=== PATIENT | female | born 1960 | race Two or more races ===

== ENCOUNTER → 2021-12-30 | Outpatient (CLI) | payer MEDICAID ==
[2021-12-30 10:16] LABS: Urine WBC None Seen /hpf (0 - 5)
[2021-12-30 12:54] LABS: Urine Bacteria NONE SEEN /hpf (None Seen); Urine Blood Negative /uL (Negative); Urine Specific Gravity 1.016 (1.001-1.035)
== END | disposition home or self-care (01) ==
LOC: LAB 10:12
PROVIDERS: ATTEND Urology
DX: N39.0 Urinary tract infection, site not specified (principal)
CPT/HCPCS: 81001; 87086

== ENCOUNTER 2024-09-02 14:40 | Emergency (ER) | payer MEDICAID ==
[~2024-09-02] VITALS: Ht 167.6 cm; Wt 118.0 kg
[2024-09-02 16:26] VITALS: BP 148/86; PULSE 102; RESP 16; TEMP 98.5; O2SAT 95
--- NOTE | 2024-09-02 16:31 | ED.PDOC ---
Musculoskeletal HPI Comments 64-year-old female presents with a chief complaint of right foot, 2nd toe bruising s/p ingrown toe nail removal x onset Sunday. Patient states that she noticed the bruising on Sunday and is concerned and wanted to be evaluated. Chief Complaint: Lower Extremity Time Seen by MD: 16:17 Reviewed Notes: Nurses Notes, Medications, Allergies Allergies: Coded Allergies: NO KNOWN ALLERGIES (Unverified , 09/02/24) Home Meds Active Scripts Cephalexin Monohydrate (Cephalexin) 500 Mg Tab, 1 TAB PO QID for 7 Days, #28 TAB 0 Refills Prov:VIRGINIA RUSHINGGrisel El NP 09/02/24 Information Source: Patient Mode of Arrival: Ambulatory Location: Right Extremity Location: Toe 2 Timing: Days Prehospital treatment: None Severity: Moderate Able to Move Extremity: Yes Bear Weight: Fully Pain: Moderate Hand Dominance: Right Past Medical History PAST MEDICAL HISTORY: DM Surgical History: Denies all surgeries 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 OPERATOR Hx Family History Family History: Reviewed,noncontributory to illness Social History Smoker: Non-Smoker Alcohol: Denies ETOH Use Drugs: Denies Drug Use Lives In: Home Constitutional: denies: chills, diaphoresis, fatigue, fever, malaise, sweats, weakness, others EENTM: denies: blurred vision, double vision, ear bleeding, ear discharge, ear drainage, ear pain, ear ringing, eye pain, eye redness, hearing loss, mouth pain, mouth swelling, nasal discharge, nose bleeding, nose congestion, nose pain, photophobia, tearing, throat pain, throat swelling, voice changes, others Respiratory: denies: cough, hemoptysis, orthopnea, SOB at rest, shortness of breath, SOB with excertion, stridor, wheezing, others Cardiovascular: denies: chest pain, dizzy spells, diaphoresis, Dyspnea on exertion, edema, irregular heart beat, left arm pain, lightheadedness, palpitations, PND, syncope, others Gastrointestinal: denies: abdomen distended, abdominal pain, blood streaked bowels, constipated, diarrhea, dysphagia, difficulty swallowing, hematemesis, melena, nausea, poor appetite, poor fluid intake, rectal bleeding, rectal pain, vomiting, others Genitourinary: denies: abnormal vagina bleeding, burning, dyspareunia, dysuria, flank pain, frequency, hematuria, incontinence, pain, , vagina d ischarge, urgency, others Neurological: denies: dizziness, fainting, headache, left sided numbness, left sided weakness, numbness, paresthesia, pre-existing deficit, right sided numbness, right sided weakness, seizure, speech problems, tingling, tremors, weakness, others Musculoskeletal: denies: back pain, gout, joint pain, joint swelling, muscle pain, muscle stiffness, neck pain, others Integumetry: reports: bruises; denies: change in color, change in hair/nails, dryness, laceration, lesions, lumps, rash, wounds, others Allergic/Immunocompromised: denies: Difficulty Healing, Frequent Infections, Hives, Itching, others Hematologic/Lymphatic: denies: anemia, blood clots, easy bleeding, easy bruising, swollen glands, others Endocrine: denies: excessive hunger, excessive sweating, excessive thirst, excessive urination, flushing, intolerance to cold, intolerance to heat, unexplained weight gain, unexplained weight loss, others Psychiatric: denies: anxiety, bipolar disorder, depression, hopeless, panic disorder, schizophrenia, sleepless, suicidal, others All Other Systems: Reviewed and Negative Physical Exam General Appearance: No Apparent Distress, Normal HEENT: Normal ENT Inspection, Pharynx Normal, TMs Normal Neck: Full Range of Motion, Non-Tender, Normal, Normal Inspection Respiratory: Chest Non-Tender, Lungs Clear, No Accessory Muscle Use, No Re spiratory Distress, Normal Breath Sounds Cardiovascular: No Murmur, No Gallop, Regular Rate/Rhythm Breast Exam: Deferred Gastrointestinal: No Organomegaly, Non Tender, No Pulsatile Mass, Normal Bowel Sounds, Soft Genitalia: Deferred Pelvic: Deferred Rectal: Deferred Extremities: No calf tenderness, Normal capillary refill, Normal inspection, Normal range of motion, Non-tender, No pedal edema Musculoskeletal : Apperance: Normal Neurologic: Alert, vacuum repairer II-XII nml as Tested, No Motor Deficits, Normal Affect, Normal Mood, No Sensory Deficits Cerebellar Function: Normal Reflexes: Normal Skin: Dry, Normal Color, Warm Lymphatic: No Adenopathy Was a procedure done? Was a procedure done?: No Differential Diagnosis EXT Differential Diagnosis: Fracture, Sprain, Dislocation X-Ray, Labs, Meds, VS Vital Signs Date Time Temp Pulse Resp B/P (MAP) Pulse Ox O2 Delivery O2 Flow Rate FiO2 09/02/24 16:26 102 16 95 Room Air 09/02/24 16:26 98.5 102 16 148/86 (106) 95 98.5 09/02/24 15:45 98.5 102 16 148/86 (106) 95 98.5 X-Ray, Labs, Meds, VS Comment Patient arrives alert and oriented, ABC's intact, afebrile, vital signs stable, saturating well in room air Based on the patient's history and physical exam, the most likely diagnosis is an ingrown toenail. Advised to follow-up can be arranged to monitor the patient's progress. Based on shared decision making agreed to empiric Tx The differential diagnosis for the patient's ingrown toenail includes cellulitis or a bacterial infection of the toe, gout, or a fungal infection were considered. Additional MDM Review of External, Non-ED records: External records reviewed. Discussion with independent historian (EMS, family) history obtained from the patient/parents (if applicable) at bedside Chronic conditions affecting care: None Social determinants of health affecting care: None Consideration of admission (observation or admission): I considered escalation of care to admission for this patient, however given the reassuring workup, the patient is safe for outpatient management. Time of 1ST Reevaluation: 16:47 Reevaluation 1ST: Improved Patient Education/Counseling: Diagnosis, Treatment, Prognosis Family Education/Counseling: No Family Present Departure 1 Departure Time of Disposition: 16:35 Impression: Primary Impression: Paronychia Disposition: 01 HOME / SELF CARE / HOMELESS Condition: Stable e-Prescriptions Cephalexin Monohydrate (Cephalexin) 500 Mg Tab 1 TAB PO QID for 7 Days, #28 TAB 0 Refills Prov: MIRIAM RUSHING HOSIERY BAGGER 09/02/24 Critical Care Note Critical Care Time?: No Stability Stability form required: No Heart Score Heart Score: Heart Score Response (Comments) Value History N/A 0 EKG N/A 0 Age N/A 0 Risk Factors N/A 0 Troponin N/A 0 Total 0 I personally scribed for MIRIAM RUSHING HOSIERY BAGGER ([email or web address]) on 09/02/24 at 16:31. Electronically submitted by Russell Terry ([email or web address]). I personally scribed for MIRIAM RUSHING NP ([email or web address]) on 09/02/24 at 16:33. Electronically submitted by Russell Terry ([email or web address]). MIRIAM RUSHING NP Sep 02, 2024 16:31
[2024-09-02] MEDS ORDERED: CEPH500T PO (16:36)
== END 2024-09-02 16:39 | disposition home or self-care (01) ==
LOC: ER 14:40
DX: L03.031 Cellulitis of right toe (principal); E11.9 Type 2 diabetes mellitus without complications